=== PATIENT | male | born 1995 | race Caucasian/White ===

== ENCOUNTER 2019-08-31 23:11 | Emergency (ER) | payer OTHER, BC, SELFPAY ==
[2019-08-31 23:17] VITALS: BP 163/94; PULSE 94; RESP 18; TEMP 36.6; O2SAT 96
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
--- NOTE | 2019-08-31 23:42 | NUR.NOTE ---
Nursing Note: Radiology at bedside for portable xray
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
[2019-09-01 00:09] VITALS: BP 163/94; PULSE 94; RESP 18; O2SAT 96
== END 2019-09-01 00:07 | disposition home or self-care (01) ==
PROVIDERS: Emergency Provider Emergency Medicine
DX: S62.306A Unspecified fracture of fifth metacarpal bone, right hand, initial encounter for closed fracture (principal); X58.XXXA Exposure to other specified factors, initial encounter; Y99.0 Civilian activity done for income or pay
CPT/HCPCS: 29125; 99283; 73130

== ENCOUNTER 2019-09-30 11:11 | Outpatient (CLI) | payer OTHER, SELFPAY ==
--- NOTE | 2019-09-30 09:30 | DI.RAD_ITS ---
EXAM: XR HAND RT COMPLETE INDICATION: f/u. COMPARISON: CR,XR XR HAND RT COMPLETE from 08/31/2019 TECHNIQUE: 2D digital imaging was performed. FINDINGS: There is been no change in alignment of the 5th metacarpal fracture. There is mild callus formation at the fracture site. DATA REPOSITORY: RADIATION DOSE DELIVERED:
== END 2019-09-30 11:31 ==
PROVIDERS: Visit Provider Orthopaedic Surgery
DX: S62.356D Nondisplaced fracture of shaft of fifth metacarpal bone, right hand, subsequent encounter for fracture with routine healing (principal)
CPT/HCPCS: 73130

== ENCOUNTER 2022-12-26 13:27 | Emergency (ER) | payer OTHER, SELFPAY ==
[2022-12-26 13:42] VITALS: BP 142/86; PULSE 97; RESP 22; TEMP 37.2; O2SAT 99
--- NOTE | 2022-12-26 14:00 | DI.RAD_ITS ---
Exam(s) XR FOREARM RT XR HAND RT COMPLETE XR WRIST RT COMPLETE EXAM: XR HAND RT COMPLETE and XR wrist RT complete and XR forearm RT CLINICAL HISTORY: R/O Fracture, Pain. TECHNIQUE: 2D digital imaging was performed of the right forearm, wrist and hand. Eight images were obtained. AP, lateral and oblique views were obtained. COMPARISON: CR XR HAND RT COMPLETE from 09/30/2019 FINDINGS: BONES: There is an acute comminuted fracture at the junction of the middle and distal thirds of the r ight radius. The distal fracture is posteriorly displaced 1 shaft's with. No bony destructive lesio n is seen. JOINTS: No dislocation present. The elbow and wrist are unremarkable. SOFT TISSUE: Normal. IMPRESSION: Comminuted displaced fracture involving the junction of the middle and distal thirds of the right rad ius as described above. No other fractures appreciated. DATA REPOSITORY: RADIATION DOSE DELIVERED:
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
[2022-12-26] MEDS: oxyCODONE 5 mg/Acetaminophen 325 mg TAB 2 TAB PO (16:19)
[2022-12-26] MEDS: Ibuprofen 600 MG TAB PO (16:19)
[2022-12-26 17:04] VITALS: BP 153/92; PULSE 83; RESP 14; TEMP 36.3; O2SAT 95
== END 2022-12-26 17:09 | disposition home or self-care (01) ==
PROVIDERS: Emergency Provider Physician Assistant
DX: S52.591A Other fractures of lower end of right radius, initial encounter for closed fracture (principal); Y35.891A Legal intervention involving other specified means, law enforcement official injured, initial encounter; Y93.89 Activity, other specified; Y92.9 Unspecified place or not applicable; Y99.0 Civilian activity done for income or pay
CPT/HCPCS: 29125; 99283; 73090; 73110; 73130

== ENCOUNTER 2022-12-27 06:00 | Day surgery (SDC) | payer OTHER, SELFPAY ==
[2022-12-27] VITALS (9 sets, daily range): BP systolic 118–146; BP diastolic 52–100; PULSE 75–92; RESP 15–22; TEMP 36.3–36.7; O2SAT 97–99
[2022-12-27] MEDS: Lactated Ringers 1,000 ML 30 ML IV ×2 (06:55→10:40)
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
--- NOTE | 2022-12-27 07:04 | W.PM.DSUDISC ---
Date of service: 12/27/22 Time of Service: 11:00 Discharge Plan Disposition Patient Disposition: Home Condition: Stable Discharge Details Attending Provider: Jt Valdovinos Primary Care Provider: Unknown,Unknown Home Meds and New Rx's Prescriptions: New naproxen 250 mg tablet 250 - 500 mg PO BID PRNQty: 40 0RF Rx Instructions: take with a meal oxycodone 5 mg tablet 5 - 10 mg PO Q4H MDD 30 mg PRN (Reason: moderate to severe pain) Qty: 18 0RF Continued ascorbic acid (vitamin C) [Vitamin C] 500 mg Tablet 500 mg PO DAILY calcium phos,dibas-vitamin D3 77-400 mg-unit Tablet 1 tab PO DAILY Discharge Instructions Additional Instructions: Surgery: Right radial shaft ORIF Activity: Non-weightbearing right forearm. Recommend elevation to minimize swelling discomfort. Encourage passive and active range of motion all fingers and thumb to prevent stiffness. Gentle/light use hand okay for activities of daily living. Prescriptions: Naproxen 250 mg take 1-2 every 12 hours with a meal as needed for moderate pain Oxycodone 5 mg take 1-2 every 4-6 hours as needed for severe pain You may use ttgm-aua-xbtihfa Tylenol (acetaminophen) as needed for mild pain. These pain medications may be taken all at once or in different combinations as needed. Also, recommend Colace (docusate) as a stool softener as surgery and pain medicine cause constipation. You may try gnij-xjb-lzkggis diphenhydramine (Benadryl) 25-50 mg nightly as a sleep aid Dressings: Leave splint and dressing in place until follow-up. Keep clean and dry at all times. Follow-up: 10-[address] Valdovinos You may take off the leg compression stockings this evening at home. You may also leave them on a few days longer if you have a history of leg swelling or edema. Let us know right away if you develop any redness, drainage, fevers, chest pain, or trouble breathing. Do not drink alcohol or drive for at least 24 hours after anesthesia. Please call the office during business hours with any questions or concerns. Discharge Orders Discharge Orders: Discharge Order (Routine); Ordered 12/27/22 Ordered By: Jt Valdovinos DS: Diagnosis Discharge Diagnosis (1) Fracture of radial shaft, right, closed: Status: Acute
--- NOTE | 2022-12-27 07:08 | ROE_ITS ---
Date of service: 12/27/22 Time of Service: 07:30 Operative Note Operative Note DATE OF PROCEDURE: 12/27/22 PRE-OP DIAGNOSIS: Right displaced radial shaft fracture POST-OP DIAGNOSIS: same PROCEDURE: Right radial shaft open reduction internal fixation, CPT #83092 SURGEON: Jt Valdovinos RANGE RIDER: Antonio Singh ANESTHESIA TYPE: Local By Surgeon and General LMA/ETT Refer to Anesthesia Record ESTIMATED BLOOD LOSS: 10 TOURNIQUET TIME: 0 COMPLICATIONS: None Patient was transported to: PACU Patient's condition: stable Implants: Synthes 3.5 mm LCP 6-hole plate with 6x bicortical cortex screws Indications: Please see complete medical record for details. Findings: Soft compartments, displaced radial shaft fracture, intact ulna with greenstick deformity versus chronic deformity from pediatric fracture; Stable elbow and wri st joints after radial shaft fixation including DRUJ Procedure Description: In the operating room, general anesthesia was induced. The patient was pos itioned supine on the operating room table. All bony prominences were well- padded. Preoperative antibiotics were administered. The right forearm was prepped and draped in the usual sterile fashion. The correct patient, procedure, and side of the procedure were all verified prior to incision. The forearm was examined, all compartments were completely soft, radial pulse was difficult to palpate, probably 1+, but there was brisk cap refill throughout all radial and ulnar digits, swelling was only mild, there is obvious deformity of the radial forearm. No appreciable problems about the elbow or wrist. The volar approach was used centered over the fracture at the mid to distal forearm. Care was taken to retract and protect neurovascular and tendinous structures. The radial artery brachial radialis and radial sensory nerves were maintained radial and the FCR and remaining forearm structures ulnar. The fracture site was readily identified with the distal fragment without much soft tissue attachments near the fracture, but the proximal fragment with expected muscle attachments, which was released for radial and allowed to sweep and retract ulnarly the arm brought from supination during the approach to pronation and then back to supination. There was a small ulnar and a larger radial bone fragment comminution. Bone forceps were used to reduce the main fracture and rotation and reduction confirmed although the fracture did not keep and stay in owing to the comminution. The larger radial fragment was additionally reduced to the construct with bone clamp. An appropriately length plate was applied to the volar radial cortex with soft tissues elevated as needed proximally and distally. It was centered on both sides of the fracture and then loosely secured proximal to the fracture with a bicortical cortex screw with the screw head resting on the plate edge away from the fracture to allow for planned compression. A bicortical cortex screw was then placed in neutral position distal to the fracture. The distal screw closest to the fracture site was then carefully directed into the reduced intercalary fragment securing it as well under compression. The initial proximal screw was then tightened compressing the reduced bone ends across the fracture site. An additional 2 proximal and 1 bicortical cortex screws were placed with the most proximal distal screw sl ightly directed away from the construct and working length. All screws were final tightened with excellent bone fixation strength. Construct was inspected and demonstrated excellent fixation strength without notable restrictions to pronation supination. The DRUJ examined stable. Fluoroscopically the elbow and wrist joints were without problem or dislocation of the DRUJ or radial capitellar joints. The small ulnar proximal comminuted piece rested near to the remaining construct. The wound was copiously irrigated with normal saline. The FPL muscle that had been elevated was allowed to reduce itself over the plate and radius. Radial artery appeared intact although still likely under spasm with a 1+ pulse. Hemostasis was excellent. Subcutaneous tissue was closed 2-0 Monocryl buried i nterrupted. Compartments were soft, skin swelling and tension were appropriate for 3-0 Monocryl running subcuticular. Steri-Strips applied followed by Xeroform, sterile gauze, sterile soft roll, and a volar plaster splint was applied maintaining the wrist in neutral to extended position. There was excellent pulse oximeter waveform at the thumb and index fingers with brisk cap refill throughout the hand. The patient awoke from anesthesia without complication and was transferred to the recovery room in a stable condition.
--- NOTE | 2022-12-27 07:08 | W.ANESPRE ---
General Info Date of Service Date Performed: 12/27/22 Height: 6 ft 1 in Weight: 103.419 kg Body Mass Index (BMI): 30.0 Surgical Procedure: Operation Date: 12/27/22 07:40 Proposed Procedure Side Surgeon p Wrist ORIF Distal Radius Right Jt Valdovinos MD Meds Allergies and Home Medications Allergies Allergy/AdvReac Type Severity Reaction Status Date / Time amoxicillin AdvReac Unverified 09/09/19 11:25 erythromycin base AdvReac Unverified 09/09/19 11:25 [From Erythrocin] Home Medication Medication Instructions Recorded ascorbic acid (vitamin C) 500 mg 500 mg PO DAILY 12/26/22 tablet (Vitamin C) calcium phosphate,dibasic 77 1 tab PO DAILY 12/26/22 mg-vitamin D3 400 unit tablet naproxen 250 mg tablet 250 - 500 mg PO BID PRN #40 tabs 12/27/22 oxycodone 5 mg tablet 5 - 10 mg PO Q4H PRN moderate to 12/27/22 severe pain #18 tabs Current Visit Medications: Current Medications Generic Name Dose Route Start Last Admin Trade Name Freq PRN Reason Stop Dose Admin Oxycodone HCl 0 mg 12/27/22 06:57 Oxycodone 5 Mg Tab PO 01/26/23 06:56 Q3H PRN PRN Pain PFSH Active Problems Active Problems: Problem Status Onset Code Fracture, radius [id number] Tobacco Smoking/Tobacco Use Status: Never Substance Use Substance use: Never Vital Signs and Lab Results Lab Results Blood Type / Crossmatch: No Data to Display Complete Blood Count: No Data to Display Complete Metabolic Panel: No Data to Display Liver Function Panel: No Data to Display Coagulation Panel: No Data to Display Cardiac Panel: No Data to Display Arterial Blood Gas: No Data to Display Venous Blood Gas: No Data to Display Pancreas Panel: No Data to Display Thyroid Panel: No Data to Display Infectious Disease: No Data to Display Blood Cultures: No Data to Display Toxicology Panel: No Data to Display Anesthesia Assessment and Plan Anesthesia History Personal History: No History of Anesthesia Complications Family History: No Family History of Anesthesia Complications Exercise Tolerance Exercise Tolerance: Metabolic Equivalents>4 Pertinent Negatives Pertinent Negatives: No Symptoms of GERD Cardiac & Pulmonary Exam Cardiac Exam: Normal S1/S2 Heart Sounds Pulmonary Exam: Clear Bilateral Breath Sounds Implantable Cardiac Device Does patient have a Pacemaker or an ICD?: No Airway Exam Known Difficult Airway: No Mallampati Class: 2 Mouth Opening: Normal (> 3cm) Thyromental Distance: Greater than 3 cm Neck Range of Motion: Full ROM Neck Circumference: Normal Teeth Condition: Normal Dentition ASA Classification ASA Score: ASA 1 Emergency Case?: No NPO Status NPO Status: NPO Clears >2 hours, Solids >8 hours Anesthesia Plan Resuscitation Status: Full Code Anesthesia Technique: General Anesthesia Airway Planned: Endotracheal Tube Monitors Used: Standard Monitors
[2022-12-27] MEDS: ceFAZolin 2 GM/50 ML BAG IVPB (08:01)
--- NOTE | 2022-12-27 10:01 | DI.RAD_ITS ---
Exam(s) XR WRIST RT LIMITED EXAM: XR WRIST RT LIMITED CLINICAL HISTORY: fracture. TECHNIQUE: 2D digital imaging was performed. COMPARISON: No exams were available for comparison FINDINGS: Fluoroscopy provided during open reduction internal fixation of right radius fracture. See procedure report for details. Fluoroscopy time 13.8 seconds. IMPRESSION: Radiation exposure index/cumulative dose: Nonar= 0.27 mGy DATA REPOSITORY: RADIATION DOSE DELIVERED:
--- NOTE | 2022-12-27 11:11 | W.ANESPOSTOP ---
Postoperative Evaluation Date, Time and Location Date Performed: 12/27/22 Time Performed: 11:11 Patient Location: Day Surgery Unit Vital Signs Most Recent Imported Vital Signs: Most Recent Vital Signs Temp Pulse Resp BP Pulse Ox 36.6 C 84 22 136/64 98 12/27/22 10:50 12/27/22 10:50 12/27/22 10:50 12/27/22 10:50 12/27/22 10:50 Pain Score Most Recent Pain Score: Most Recent Pain Score Pain Level 3 12/27/22 10:50 Assessment Mental Status: Awake (Alert & Oriented to Patient Baseline) Airway and Respiratory Function: Patent airway with normal (patient baseline) respiratory exam Cardiovascular Function: Hemodynamically Stable Hydration Status: Adequately Hydrated Nausea & Vomiting: No Nausea or Vomiting Pain: Pain is tolerable per patient Peripheral Nerve Block: Patient did not receive a nerve block Postoperative Comments:: Patient seen in [facility] with significant other at bedside. All questions answered, appropriate for discharge.
[2022-12-27] MEDS: oxyCODONE 5 MG TAB PO (11:37)
== END 2022-12-27 12:20 | disposition home or self-care (01) ==
PROVIDERS: Visit Provider Student in an Organized Health Care Education/Training Program
PROC: (CPT 25515; principal; 2022-12-27 07:30)
DX: S52.301A Unspecified fracture of shaft of right radius, initial encounter for closed fracture (principal); X58.XXXA Exposure to other specified factors, initial encounter; Y99.0 Civilian activity done for income or pay
CPT/HCPCS: 25515; 73100; J0131; J0690; J1100; J1885; J2250; J2405; J2704; J3010

== ENCOUNTER 2023-01-08 10:23 | Outpatient (CLI) | payer OTHER, SELFPAY ==
--- NOTE | 2023-01-08 15:00 | DI.RAD_ITS ---
Exam(s) XR FOREARM RT EXAM: XR FOREARM RT CLINICAL HISTORY: radial shaft fx f/u. TECHNIQUE: 2D digital imaging was performed of the left forearm. Two views were obtained. AP and l ateral views were obtained. COMPARISON: CR XR FOREARM RT from 12/26/2022 XA XR WRIST RT LIMITED from 12/27/2022 FINDINGS: BONES: There again seen sideplate and screws transfixing the comminuted right radial fracture. No ch eunice in alignment of the orthopedic hardware fracture components is seen. No new fractures present. No bony destructive lesion is seen. Visualized portion of elbow and wrist joints are unremarkable. SOFT TISSUE: Normal. IMPRESSION: Stable right radial fracture. DATA REPOSITORY: RADIATION DOSE DELIVERED:
== END 2023-01-08 10:24 | disposition home or self-care (01) ==
LOC: DIORS 01-10 10:32
PROVIDERS: Visit Provider Student in an Organized Health Care Education/Training Program
DX: S62.356D Nondisplaced fracture of shaft of fifth metacarpal bone, right hand, subsequent encounter for fracture with routine healing (principal); X58.XXXD Exposure to other specified factors, subsequent encounter
CPT/HCPCS: 73090

== ENCOUNTER 2023-02-05 16:03 | Outpatient (CLI) | payer OTHER, SELFPAY ==
--- NOTE | 2023-02-05 14:15 | DI.RAD_ITS ---
Exam(s) XR FOREARM RT EXAM: XR FOREARM RT INDICATION: radial fx f/u. COMPARISON: CR XR FOREARM RT from 01/08/2023 TECHNIQUE: 2D digital imaging was performed. Two views. FINDINGS: Fixation plate is again noted along the distal through the radius for fracture fixation. There has b een no change in fracture or hardware alignment. No new abnormalities are seen. DATA REPOSITORY: RADIATION DOSE DELIVERED:
== END 2023-02-05 16:04 | disposition home or self-care (01) ==
LOC: DIORS 16:04
PROVIDERS: Visit Provider Student in an Organized Health Care Education/Training Program
DX: S62.356D Nondisplaced fracture of shaft of fifth metacarpal bone, right hand, subsequent encounter for fracture with routine healing (principal); X58.XXXD Exposure to other specified factors, subsequent encounter
CPT/HCPCS: 73090

== ENCOUNTER 2023-03-19 14:56 | Outpatient (CLI) | payer OTHER, SELFPAY ==
--- NOTE | 2023-03-19 13:30 | DI.RAD_ITS ---
Exam(s) XR FOREARM RT EXAM: XR FOREARM RT CLINICAL HISTORY: F/U FRACTURE. TECHNIQUE: 2D digital imaging was performed. Two views. COMPARISON: CR XR FOREARM RT from 02/05/2023 FINDINGS: In the fixation plate is again noted in the radial shaft for fracture fixation. There is increased c allus formation around the fracture site. There is no change in fracture or hardware alignment. No new abnormalities. DATA REPOSITORY: RADIATION DOSE DELIVERED:
== END 2023-03-19 14:57 | disposition home or self-care (01) ==
LOC: DIORS 14:56
PROVIDERS: Visit Provider Student in an Organized Health Care Education/Training Program
DX: S52.591D Other fractures of lower end of right radius, subsequent encounter for closed fracture with routine healing (principal); X58.XXXD Exposure to other specified factors, subsequent encounter
CPT/HCPCS: 73090

== ENCOUNTER 2023-07-03 15:12 | Outpatient (CLI) | payer OTHER, SELFPAY ==
--- NOTE | 2023-07-03 14:00 | DI.RAD_ITS ---
Exam(s) XR FOREARM RT EXAM: XR FOREARM RT INDICATION: F/U FRACTURE. COMPARISON: CR XR FOREARM RT from 03/19/2023 TECHNIQUE: 2D digital imaging was performed. Two views. FINDINGS: There has been continued healing of the fracture at the distal 3rd of the radius. No change in fract ure or hardware alignment. The elbow and wrist are unremarkable visualized. DATA REPOSITORY: RADIATION DOSE DELIVERED:
== END 2023-07-03 15:13 | disposition home or self-care (01) ==
LOC: DIORS 15:12
PROVIDERS: PCP Internal Medicine; Visit Provider Student in an Organized Health Care Education/Training Program
DX: S52.321A Displaced transverse fracture of shaft of right radius, initial encounter for closed fracture (principal); X58.XXXD Exposure to other specified factors, subsequent encounter
CPT/HCPCS: 73090